=== PATIENT | female | born 1965 | race Caucasian/White ===

== ENCOUNTER 2022-07-24 09:29 | Outpatient (CLI) | payer BC, SELFPAY ==
--- NOTE | 2022-07-24 09:41 | US_ITS ---
WS: [id number] RIGHT UPPER QUADRANT ULTRASOUND HISTORY: BLACK STOOLS/RUQ ABD PAIN/BLOATING/FLATULENCE/ERUCTATION COMPARISON: None available. Liver: 12.8 cm in length. Normal size liver. No bile duct dilatation or mass. Portal Vein: Normal hepatopetal flow with monophasic waveform. Gallbladder: Normally distended gallbladder with no stones or wall thickening. CBD: 0.3 cm Pancreas: Normal size and echogenicity. Right kidney: 9.8 cm in length. Normal size and echogenicity. No hydronephrosis or mass. Aorta and IVC: Unremarkable abdominal aorta and IVC. No ascites. US/US abdomen limited [id number] IMPRESSION: Normal RIGHT upper quadrant ultrasound.
== END 2022-07-24 09:30 | disposition home or self-care (01) ==
LOC: RAD 09:33
PROVIDERS: PCP Family Medicine; Visit Provider Nurse Practitioner Family
DX: K92.1 Melena (principal); R10.11 Right upper quadrant pain; R14.0 Abdominal distension (gaseous); R14.3 Flatulence
CPT/HCPCS: 76705

== ENCOUNTER 2022-08-01 10:09 | Emergency (ER) | payer BC, MEDICAID, SELFPAY ==
[2022-08-01 10:16] VITALS: BMI 22.3
[2022-08-01 10:19] VITALS: BP 153/82; PULSE 111; RESP 18; TEMP 36.6; O2SAT 98
--- NOTE | 2022-08-01 10:28 | W.ED.SKABFB ---
HPI - Skin/Abscess/Foreign Bdy General: Chief complaint: Skin/Abscess/Foreign Body Stated complaint: body rash and cold Time Seen by Provider: 08/01/22 10:15 History of Present Illness: 57-year-old female presents emergency room with complaints of a rash on the extremities somewhat on her trunk for the last 2 months. She is aggressively excoriating her extremities when I came in the room. There are some areas on her back fewer small areas on her abdomen or extremities lower extremities and forearms are the worst. It is present bilaterally does not follow dermatomal pattern. She states she has previously seen her primary care physician was started on topical triamcinolone has been using Benadryl continues to give her difficulty. MD complaint: rash Onset (ago): month(s) (2) Location: chest, back, LUE, RUE, LLE and RLE Severity: moderate Quality: constant Relieving factors: none Exacerbating factors: none Context: none Associated symptoms: Deny arthralgias, chills, cough, fever(s), myalgias, nausea, rigidity, short of breath or vomiting Treatments prior to arrival: corticosteroid (Triamcinolone) Review of Systems Const: Denies: fever(s), chills, fatigue or malaise ENMT: Denies: throat pain, ear or mastoid pain, nasal discharge or nasal congestion Card: Denies: chest pain, palpitations, irregular heart rhythm, edema, dyspnea on exertion or orthopnea Resp: Denies: dyspnea, productive cough or non-productive cough GI: Denies: abdominal pain, nausea or vomiting : Denies: flank pain, difficulty voiding, dysuria, urinary frequency or urinary urgency Skin/Breast: Denies: rash or pruritus Course Vital Signs: Vital signs: Vital Signs Temperature 97.8 F 08/01/22 10:19 Pulse Rate 111 H 08/01/22 10:19 Respiratory Rate 18 08/01/22 10:19 Blood Pressure 153/82 08/01/22 10:19 Pulse Oximetry 98 08/01/22 10:19 Oxygen Delivery Me thod 08/01/22 10:19 MDM - Skin/Abscess/Foreign Bdy Medicial Decision Making Rash is excoriated with scattered small eschars no erythema no lymphangitis no induration no vesicles it is not in a dermatomal pattern. Does not appear to be infectious does not appear to be zoster patient was concerned it was shingles it is most certainly not that. She is excoriating it quite heavily while I was in the room advised her to avoid doing that as it will probably make it worse. Offered patient a Decadron shot she declined fact she left the department early without getting the shot she refused it from the nurse. She was prescribed steroid taper and increase triamcinolone to 3 times daily recommend following with her primary care for referral to dermatology Medical Records I reviewed the patient's medical records. Lab Data I reviewed the patient's lab results. Discharge Plan Discharge Patient Disposition: Home Clinical Impression: Contact dermatitis Condition: Stable Prescriptions: New prednisone 20 mg tablet 20 mg PO TID Qty: 15 0RF Rx Instructions: 1 p.o. 3 times daily x3 days, 1 p.o. twice daily x2 days, 1 p.o. daily x2 days hydroxyzine HCl 25 mg tablet 25 mg PO Q6H PRN (Reason: itching) Qty: 20 0RF triamcinolone acetonide 0.1 % ointment 1 applic topical TID Qty: 453.6 0RF Discharge Orders: Discharge ED (Routine); Ordered 08/01/22 Ordered By: Abilio Nguyen Referrals: Annetta Dunlap DO [Primary Care Provider] - Discharge Diet: Usual diet Discharge Activity: Increase activity as tolerated Patient Instructions: Opioid Safety, Pain Management Activity Restrictions/Additional Instructions: Steroid taper increase your triamcinolone to 3 times daily. Hydroxyzine as needed. Follow-up with your primary care doctor for possible referral to dermatology if not improving. Coding Level of Care Code ED [employer] for Diana Perez
== END 2022-08-01 11:10 | disposition home or self-care (01) ==
PROVIDERS: Emergency Provider Family Medicine; PCP Family Medicine
DX: L25.9 Unspecified contact dermatitis, unspecified cause (principal)
CPT/HCPCS: 99284

== ENCOUNTER 2023-02-11 16:28 | Outpatient (CLI) | payer BC, MEDICAID, SELFPAY ==
--- NOTE | 2023-02-11 16:39 | CT_ITS ---
WS: [id number] CT ABDOMEN AND PELVIS WITH CONTRAST HISTORY: ELEVATED AMYLASE, ABDOMINAL PAIN RECURRENT TECHNIQUE: Imaging performed of the abdomen and pelvis with IV contrast. Single phase imaging of the abdomen. Coronal and sagittal reformats are submitted. All CT scans at [facility] use at [address] one of these dose optimization techniques: automated exposure control; mA and/or kV adjustment per patient size (includes targeted exams where dose is matched to clinical indication); or iterative re construction. IV CONTRAST: Omnipaque 350; 100 mL IV. Oral contrast: No DLP: 248.68 mGy.cm COMPARISON: None available. Lower thorax: Lung bases are clear. No visualized. Heart size appears normal on the localizer image. No hiatal hernia. Liver/biliary system: Normal size with no intrahepatic dilatation. Gallbladder: Normal. No gallstones or wall thickening. No pericholecystic fluid. Pancreas: Pancreas is not well visualized as no oral contrast was provided. Overlapping loops of the duodenum and the pancreatic head. No mass identified and no pancreatic duct dilatation. No adjacent i nflammation. Spleen: Normal size spleen with several granulomata. Adrenal glands: Normal. Right kidney: Normal. Left kidney: Normal. Aorta: Mild atherosclerosis with no aneurysm. Lymphadenopathy: None. Free fluid: None. GI tract: Normal stomach, no small bowel obstruction. Prior appendectomy. No GI tract obstruction. Mi ld constipation. No significant diverticular disease. Abdominal wall: Unremarkable abdominal wall. No hernia. Pelvis: Normal size anteverted uterus. Urinary bladder is negative. No free fluid or adenopathy. Ther e is marked engorgement of the periuterine veins bilaterally which can lead to pelvic congestion synd khoa. Veins measure greater than 4 mm in diameter. Bones: Unremarkable. CT/CT abdomen pelvis w con* [id number] IMPRESSION: 1. No GI tract obstruction. No soft tissue masses are identified or diverticul ar disease. Please note this study was ordered without oral contrast which limi ts sensitivity. 2. Prior appendectomy. 3. No free fluid or adenopathy. 4. Dilated bilateral periuterine veins. Typically seen with pelvic congestion syndrome. 5. Negative pancreas. Pancreatic head is poorly identified without oral contra st. Appears negative. No pancreatic duct dilatation.
[2023-02-11] MEDS: iohexol 350 mg/mL 500 mL Btl (per mL) IV (16:54)
== END 2023-02-11 16:29 | disposition home or self-care (01) ==
LOC: RAD 16:30
PROVIDERS: PCP Family Medicine; Visit Provider Family Medicine
DX: R74.8 Abnormal levels of other serum enzymes (principal); R10.9 Unspecified abdominal pain; Z90.89 Acquired absence of other organs; I87.8 Other specified disorders of veins
CPT/HCPCS: 74177; Q9967

== ENCOUNTER → 2025-02-09 15:29 | Outpatient (BNVA) | payer BC, SELFPAY | DX: Z76.89 Persons encountering health services in other specified circumstances (principal) | CPT/HCPCS: 80053; 80061; 84443; 85025 ==

== ENCOUNTER 2025-02-15 06:43 | Outpatient (CLI) | payer BC, MEDICAID, SELFPAY ==
--- NOTE | 2025-02-15 07:15 | CT_ITS ---
WS: [id number] CT HEAD WITH AND WITHOUT CONTRAST HISTORY: constant headache and dizziness TECHNIQUE: Noncontrast 2.5 mm axial images obtained from the vertex to the skull base. Additional imaging performed at 2.5 mm axial images status post IV contrast. Bone and soft tissue windows are reviewed. All CT scans at [facility] use at least one of these dose optimization techniques: automated exposure control; mA and/or kV adjustment per patient size (includes targeted exams where dose is matched to clinical indication); or iterative reconstruction. CONTRAST: Omnipaque 350; 100 mL IV. DLP: 2176.74 mGy.cm COMPARISON: 03/08/2018 No acute intracranial hemorrhage, edema or midline shift. No significant atrophy. Incidental note is made of dense calcification in the pineal gland. There is also calcification along the interhemispheric falx which is stable. No prior infarcts. Small lacunar infarct is stable in the RIGHT occipital lobe. Present since 2012. No enhancing mass or vascular malformations identified. Dural venous sinuses are normally enhancing. Visualized [place] is unremarkable. Paranasal sinuses as visualized: Clear. Mastoid air cells: Clear. Calvarium and scalp: Intact. CT/CT head wo/w con [id number] IMPRESSION: 1. No acute intracranial hemorrhage or edema. 2. Remote lacunar infarct in the RIGHT occipital lobe. 3. No enhancing masses. 4. No significant sinus disease. 5. Stable CT since 03/08/2018 and 03/02/2013.
[2025-02-15] MEDS: iohexol 350 mg/mL 500 mL Btl (per mL) IV (07:45)
--- NOTE | 2025-02-15 08:00 | CT_ITS ---
WS: [id number] LDCT LUNG CANCER SCREENING TECHNIQUE: Noncontrast CT of the chest with coronal and sagittal reformatted images. CLINICAL INFORMATION: screening COMPARISON: None. DLP: 48.21 mGy.cm DIvol: Mean CTDIvol: 0.70 (mGy) All CT scans at [facility] use at least one of these dose optimization techniques: automated exposure control; mA and/or kV adjustment per patient size (includes targeted exams where dose is matched to clinical indication); or iterative reconstruction. FINDINGS: Slightly spiculated solid mass in the inferior segment LEFT upper lobe measuring 1.2 cm. Findings suspicious for neoplasm. Recommend further evaluation with PET/CT. 4 mm nodule LEFT upper lobe. Aortic calcification. Normal caliber thoracic aorta. Coronary calcification. Bilateral breast implants. No mediastinal or hilar lymphadenopathy. No axillary lymphadenopathy. Mild thoracic kyphosis. CT/CT lung screening [id number] IMPRESSION: Suspicious spiculated lesion in the LEFT upper lobe measuring 1.2 c m. Recommend further evaluation with PET/CT. LUNG-RADS: 4B-Suspicious FOLLOW UP: PET/CT recommended
== END 2025-02-15 06:44 | disposition home or self-care (01) ==
LOC: RAD 06:44
DX: Z12.2 Encounter for screening for malignant neoplasm of respiratory organs (principal); F17.210 Nicotine dependence, cigarettes, uncomplicated; R51.9 Headache, unspecified; R53.1 Weakness; R91.8 Other nonspecific abnormal finding of lung field; R91.1 Solitary pulmonary nodule; I70.0 Atherosclerosis of aorta; I25.10 Atherosclerotic heart disease of native coronary artery without angina pectoris; Z98.82 Breast implant status; M40.294 Other kyphosis, thoracic region; E34.8 Other specified endocrine disorders; G96.198 Other disorders of meninges, not elsewhere classified
CPT/HCPCS: 70470; 71271

== ENCOUNTER 2025-02-18 14:01 | Outpatient (CLI) | payer BC, MEDICAID, SELFPAY ==
--- NOTE | 2025-02-18 14:30 | USCV_ITS ---
Louise Camarena Age: 59 Gender: F : 1965 Exam Date: 02/18/2025 14:47 Ordering Phys: June Mcgrath NP Technologist: R Exam Location: [facility] [place] Indication: stenosis Risk Factors: Previous Vascular Surgery: Right Brachial BP: / Left Brachial BP: / Right Left Velocity (cm/s) Spectral Plaque Velocity (cm/s) Spectral Plaque Syst/Diast Broadening Syst/Diast Broadening 132.00/29.60 Prox CCA 124.90/ 36.60 105.90/27.40 Mid CCA 87.40 / 25.40 105.90/31.80 Distal CCA 89.30 / 23.50 77.50/ 16.60 Prox ICA 72.40 / 18.50 110.20/23.10 Mid ICA 89.10 / 32.50 96.40/ 31.60 Distal ICA 102.00/ 32.50 136.30 ECA 118.60 0.70 ICA/CCA 0.80 Antegrade Vertebral Antegrade 79.80/ 22.50 cm/s 47.50/ 10.00 cm/s Tri Subclavian Tri 208.0 159.3 0 0 CONCLUSIONS Right ICA stenosis <50%. Moderate atheromatous plaque right carotid bulb/ICA. Left ICA stenosis <50%.mild atheromatous plaque left carotid bulb/ICA. Intimal thickening in the common carotid arteries and internal carotid arteries bilaterally. Normal antegrade Doppler flow noted in the right vertebral artery. Normal antegrade Doppler flow noted in the left vertebral artery. Pierce Martinez MD (Electronically Signed) Final Date: 18 February 2025 16:29 S
== END 2025-02-18 14:02 | disposition home or self-care (01) ==
DX: R53.1 Weakness (principal); I65.23 Occlusion and stenosis of bilateral carotid arteries
CPT/HCPCS: 93880

== ENCOUNTER 2025-02-25 10:09 | Outpatient (CLI) | payer BC, MEDICAID, SELFPAY ==
--- NOTE | 2025-02-25 11:00 | PETR_ITS ---
PROCEDURE INFORMATION: Exam: PET/CT Skull Base to Mid-thigh Exam date and time: 02/25/2025 11:13 AM Age: 59 years old Clinical indication: Condition or disease; Condition/disease: Abdnormal CT, lung nodule LABS AND CLINICAL REPORTS: Glucose: 135 mg/dl Treatment strategy for malignancy (PET staging): Initial Staging (PI) TECHNIQUE: Imaging protocol: Following at least four-hour fasting and following the injection of radiopharmaceutical, low dose CT images were obtained. Then, PET images were obtained. Attenuation corrected images were constructed using the CT scan. Fused images of PET and CT were reviewed. The standardized uptake values (SUV) reported below are maximum values within a region of interest, expressed in gm/ml. Exam includes orbital meatal line to mid-thigh. SUV normalization method: BodyWeight Radiopharmaceutical: 11.25 mCi F-18 FDG (Fluorodeoxyglucose), IV. Time of imaging post radiopharmaceutical administration: 46 minutes Injection site: [facility] COMPARISON: CT lung screening [id number] 02/15/2025 7:35 AM, CT head 02/15/2025, CT abdomen and pelvis 02/11/2023 FINDINGS: Brain: Visualized brain has normal physiologic uptake. Oral cavity: There is physiologic appearing uptake in the region of the anterior tongue without definitive evidence of a correlating lesion on the CT images. Pharynx: Physiologic or inflammatory hearing uptake in the region of the bilateral palatine tonsils is noted. Larynx: No abnormal uptake. Lungs, pleura and trachea: A solid left upper lobe nodule measuring 1.2 x 1.1 cm on series 202, image 103 is noted, SUV max 24.0. A previously identified solid 4 mm left upper lobe nodule is unchanged and does not radiotracer evidence series 202, image 87. Heart: Normal physiologic uptake. Mediastinal space: No abnormal uptake. Liver: No abnormal uptake. Gallbladder and biliary ducts: No abnormal uptake. Pancreas: No abnormal uptake. Spleen: No abnormal uptake. Calcified granulomas in the spleen are identified. Adrenal glands: No abnormal uptake. Kidneys and ureters: Normal physiologic uptake. Stomach and bowel: No abnormal uptake. Vasculature: No abnormal uptake. Multifocal regions of atherosclerotic calcification are present, including within the coronary arteries. Lymph nodes: Uptake within a non pathologically enlarged subcarinal lymph node measuring 6 mm in short axis on CT series 202, image 90 is present, SUV max 5.4. Mild uptake within ill-defined non pathologically enlarged left hilar lymph nodes is noted, SUV max 3.5 on PET series 301, image 90. Uptake within a precarinal lymph node measuring 8 mm in short axis on CT image 82 is noted, SUV max 2.6. Low-level uptake in the right hilar region is noted, SUV max 2.9 on image 92 without well-defined correlating lymph nodes on the CT images. Skeleton: Elevated uptake associated with mild facet arthropathy is likely related to degenerative inflammatory changes on the right at C2-C3, SUV max 3.5 on image 22. Soft tissues: No abnormal uptake in the visualized head, neck, chest, abdomen, pelvis, and extremities. There are bilateral breast implants. In the anterior, slightly inferior left breast a non radiotracer avid low-density ovoid nodular structure measures 1.2 x 0.8 cm (previously 1.4 x 0.6 cm) on CT image 103. METRICS: Mediastinal blood pool: SUV max 2.4, SUV mean 2.0 Liver uptake: SUV max 3.0, SUV mean 2.7 PET/PET skull to thigh INIT [id number] IMPRESSION: 1. A 1.2 x 1.1 cm left upper lobe nodule is radiotracer avid concerning for malignancy. 2. A similar 4 mm solid left upper lobe nodule is not radiotracer avid. Assessment of small nodules can be limited by PET-CT. 3. Uptake within non pathologically enlarged mediastinal and bilateral hilar lymph nodes is identified, which can be inflammatory, infectious or malignant in etiology. 4. A low-density structure probable cystic structure in the anterior left breast is noted without elevated uptake favoring a benign etiology. Correlation with mammography or breast ultrasound is recommended as clinically indicated. 5. Additional nonurgent findings as detailed above.
== END 2025-02-25 10:10 | disposition home or self-care (01) ==
DX: R91.1 Solitary pulmonary nodule (principal); R91.8 Other nonspecific abnormal finding of lung field; D73.89 Other diseases of spleen; I25.10 Atherosclerotic heart disease of native coronary artery without angina pectoris; R59.0 Localized enlarged lymph nodes; Z98.82 Breast implant status; R92.30 Dense breasts, unspecified
CPT/HCPCS: 78815; A9552

== ENCOUNTER 2025-03-10 11:09 | Oncology outpatient (recurring) (ONCR) | payer BC, MEDICAID, SELFPAY | END 2025-03-14 23:59 | disposition home or self-care (01) | PROVIDERS: Visit Provider Internal Medicine | DX: Z53.9 Procedure and treatment not carried out, unspecified reason (principal) ==

== ENCOUNTER 2025-03-30 06:41 | Outpatient (CLI) | payer BC, MEDICAID, SELFPAY | END 2025-03-30 06:42 | disposition home or self-care (01) | LOC: RT 06:42 | PROVIDERS: Visit Provider Internal Medicine | DX: J43.9 Emphysema, unspecified (principal); Z72.0 Tobacco use; R94.2 Abnormal results of pulmonary function studies | CPT/HCPCS: 94010; 94726; 94729 ==

== ENCOUNTER 2025-04-14 13:45 | Oncology outpatient (recurring) (ONCR) | payer BC, MEDICAID, SELFPAY ==
--- NOTE | 2025-03-31 11:26 | MM_ITS ---
WS: [id number] BILATERAL 3D TOMOSYNTHESIS DIGITAL DIAGNOSTIC MAMMOGRAPHY WITH CAD CLINICAL INFORMATION: LUNG NODULE SEEN ON IMAGING STUDY HISTORY: Nodule seen on PET/CT 02/25/2025 TECHNIQUE: Bilateral CC, MLO, and ML views. FINDINGS: Scattered fibroglandular densities bilaterally. Lobulated focal asymmetric density measuring 1.8 cm lower inner LEFT breast retroareolar near the 6 o'clock position. Ultrasound is pending. Breast implants appear intact. Incidental punctate calcifications. ULTRASOUND BREAST LEFT TECHNIQUE: Ultrasound left breast focused area of concern. CLINICAL INFORMATION:NODULE SEEN ON IMAGING STUDY FINDINGS: Ultrasound LEFT breast area of concern at the 6 o'clock position. Lobulated simple cyst in this area measuring 9 x 5 x 14 mm. This has a benign appearance. No other suspicious findings. MM/MM diag BI tomosynthesis [id number] IMPRESSION: DENSITY: There are scattered areas of fibroglandular density. BI-RADS: 2 - Benign. FOLLOW UP: 1 Year Follow-up Recommend return to annual screening mammography.
--- NOTE | 2025-03-31 12:20 | US_ITS ---
WS: [id number] BILATERAL 3D TOMOSYNTHESIS DIGITAL DIAGNOSTIC MAMMOGRAPHY WITH CAD CLINICAL INFORMATION: LUNG NODULE SEEN ON IMAGING STUDY HISTORY: Nodule seen on PET/CT 02/25/2025 TECHNIQUE: Bilateral CC, MLO, and ML views. FINDINGS: Scattered fibroglandular densities bilaterally. Lobulated focal asymmetric density measuring 1.8 cm lower inner LEFT breast retroareolar near the 6 o'clock position. Ultrasound is pending. Breast implants appear intact. Incidental punctate calcifications. ULTRASOUND BREAST LEFT TECHNIQUE: Ultrasound left breast focused area of concern. CLINICAL INFORMATION:NODULE SEEN ON IMAGING STUDY FINDINGS: Ultrasound LEFT breast area of concern at the 6 o'clock position. Lobulated simple cyst in this area measuring 9 x 5 x 14 mm. This has a benign appearance. No other suspicious findings. US/US breast LT limited* [id number] IMPRESSION: DENSITY: There are scattered areas of fibroglandular density. BI-RADS: 2 - Benign. FOLLOW UP: 1 Year Follow-up Recommend return to annual screening mammography.
[2025-04-07 14:47] LABS: Hematocrit 43.5 % (36-47); Hemoglobin 15.00 g/dL (11.27-16.99); Mean Corpuscular HGB Conc 34.5 g/dL (30-55); Mean Corpuscular Hemoglobin 32.8 pg (27-33); Mean Corpuscular Volume 95.2 fl (85-98); Nucleated Red Blood Cells % 0 %; Platelet Count 270 10^3/cmm (157-399); Red Blood Count 4.57 10^6/uL (3.85-5.65); White Blood Count 7.95 10^3/uL (3.29-11.43)
[2025-04-07 15:36] LABS: Alanine Aminotransferase 12 U/L (0-33); Albumin Level 4.5 g/dL (3.5-5.2); Alkaline Phosphatase 103 U/L (35-105); Anion Gap 18.4 (5-19); Aspartate Amino Transferase 18 U/L (0-32); Blood Urea Nitrogen 14 mg/dL (8-23); Calcium 9.7 mg/dL (8.5-10.5); Carbon Dioxide 24 mmol/L (22-29); Chloride 100 mmol/L (98-107); Creatinine Clr Calc Pharmacy 71.6461; Globulin 3.4 g/dL (1.3-4.6); Glucose 84 mg/dL (65-115); Osmolality Calculated 286 mOsm/kg (285-295); Potassium 4.4 mmol/L (3.5-5.1); Sodium 138 mmol/L (136-145); Total Protein 7.9 g/dL (6.6-8.7)
--- NOTE | 2025-04-07 16:07 | N.ONRAD NP_ITS ---
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 STAGE: [id number] ICD-10: C 34.12, C77.1 Radiotherapy to date: Summary > No prior radiation therapy. Chief Complaint / History of Present Illness: Here for consultation of lung cancer. 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 She initially presented to a PCP in February of this year due to multiple syncopal episodes carding in January of this year. She is a chronic smoker and has history of COPD. Patient underwent CT lung screening on 02/15/2025 which showed a SILVER nodule with bilateral hilar mediastinal lymphadenopathy. PET/CT on 02/25/2025 showed a 1.2 x 1.1 cm SILVER mass with an SUV of 24. She had a's a stable 0.4 cm SILVER nodule with no uptake. Subcarinal lymph node measuring 0.6 cm (5.4), left hilar LN (3.5), precarinal lymph node 0.8 cm (2-0.6), Right Hilar uptake (2.9). She also had a left breast ovoid low-density structure measuring 1.2 x 0.8 mm. Mammogram on 03/31/2025 showed benign findings. EBUS bronchoscopy on 04/01/2025 with an FNA showing adenocarcinoma consistent with lung primary. Left hilar lymph nodes showed no evidence of malignancy subcarinal lymph node showed no evidence of malignancy Patient is a 45 5-year pack smoker but based on her discussion of her findings today she is going to quit smoking. She denies any fevers, chills, night sweats, hemoptysis, weight loss, or new unexplained bony tenderness. Patient has orders for MRI of the brain and port placement. Current Medications: Last Reconciled 04/07/25 by Olivia Chen MA albuterol sulfate 90 mcg/actuation (Ventolin HFA) inhalation escitalopram oxalate 5 mg PO DAILY mupirocin 2% (Centany) 1 applic topical TID 7 days ondansetron 4 mg PO Q8H PRN 2 weeks Allergies: sulfamethoxazole (From Bactrim) Allergy (Verified 04/07/25 13:22) ADR-Chest Pain trimethoprim (From Bactrim) Allergy (Verified 04/07/25 13:22) ADR-Chest Pain Medical History: Reviewed 04/07/25 @ 13:23 by Olivia Chen MA) Seizures TBI (traumatic brain injury) 2013 Trigeminal neuralgia Depressed Surgical History: Reviewed 04/07/25 @ 13:23 by Olivia Chen MA) History of breast augmentation bilateral History of appendectomy Family History: Reviewed 04/07/25 @ 13:23 by Olivia Chen MA) Grandfather Congenital heart disease Grandmother Cancer Father Congestive heart failure (CHF) Stroke Mother Diabetes Congenital heart disease Stroke Social History: Smoking and tobacco/nicotine status: light tobacco/nicotine user to quit smoking as of today. Alcohol intake: never Substance/Drug Use: never Lives independently: Yes Household members: significant other Housing: Manufactured/Mobile home Marital status: Number of children: 2 Number of grandchildren: 5 service: No Current occupational status: disabled Current Complaints / Review of Systems: . As above Vital Signs: Performed on 04/07/2025 2:11 PM BMI - 23.229 kg/m2 (high), Height - 62 in, Weight - 127 lbs, Temperature - 98.7 f, Pulse - 87 /min, Respiration - 17 /min, O2 Sat - 98 %, Pain - 2, Fatigue - 0 and BP - 160/ 98 mm(hg)(high). Physical Exam: Alert and oriented white female in no acute distress. She is obviously upset and crying at times due to diagnosis. Pupils are equal to light and accommodation. Extraocular muscles intact. Neck shows no cervical lymphadenopathy. Oral cavity exam showed no mucosal lesions. Lungs are clear to auscultation no intercostal retraction noted. Abdomen soft nontender with no hepatosplenomegaly. Extremities intact x 4. Mild cupping noted. Vertebral exam shows no bony tenderness. 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 No abnormal gait. Mdixqo-ci-slte adequate. Performance Status: KPS 90 Pathology: Adenocarcinoma SILVER Lab: Imaging: See HPI Impression: ADENOCARCINOMA SILVER, 1.2 X 1.1CM(24.0), BX ??? 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 STAGE: [id number] ICD-10: C 34.12, C77.1 Plan: Options were discussed in detail with the patient. Normal side effects regarding XRT were discussed in detail and questions answered We will need to await port placement before CT simulation CT simulation with PET fusion. Treatment to 7000 cGy in 35 fractions along with weekly carbo/Taxol chemotherapy. Following completion of combined chemoradiation she will undergo a years worth of immunotherapy. Signed by: 04/07/2025 4:06:45 PM <<Signature on File>> Time spent with patient/record review/record preparation: 75 MINUTES CPT Code: CPT Code:
--- NOTE | 2025-04-13 09:56 | XRR_ITS ---
PROCEDURE INFORMATION: Exam: XR Chest Exam date and time: 04/13/2025 10:02 AM Age: 59 years old Clinical indication: Chest wall pain; Swelling in rib region, starting chemo next month. Lung cancer; Additional info: Rib pain and shortness of breath TECHNIQUE: Imaging protocol: Radiologic exam of the chest. Views: 2 views. COMPARISON: CT lung screening [id number] 02/15/2025 7:35 AM FINDINGS: Tubes, catheters and devices: There are bilateral saline breast implants. Lungs: There is an approximately 1.3 cm nodule in the left lower lung field which correlates with the CT. Pleural spaces: Unremarkable. No pleural effusion. No pneumothorax. Heart/Mediastinum: Unremarkable. No cardiomegaly. Bones/joints: Unremarkable. XR/XR chest 2V* [id number] IMPRESSION: 1. There is an approximately 1.3 cm nodule in the left lower lung field probably in the lower left upper lobe which correlates with the CT. It is radiographically indeterminate. 2. Otherwise unremarkable chest x-ray.
--- NOTE | 2025-04-14 13:45 | MR_ITS ---
WS: [id number] MRI BRAIN WITH AND WITHOUT CONTRAST HISTORY: non small cell lung cancer COMPARISON: None available. TECHNIQUE: Multiplanar imaging performed through the brain with MultiHance 12 ml's IV. No acute infarcts are seen. Angelo-white matter differentiation is well preserved. There are very few T2 FLAIR signal hyperintensities within the subcortical white matter. No prior infarct. No significant atrophy. No susceptibility artifacts or prior lacunar infarcts. Ventricles and extra-axial spaces are normal. Clivus and pituitary gland are normal. Visualized posterior fossa and brainstem are also normal. Postcontrast images are negative for masses or vascular malformations. Dural venous sinuses are normal. Paranasal sinuses: Well aerated with no significant disease. Mastoid air cells: Normal. Calvarium and scalp: Normal. MR/MR head wo/w con [id number] IMPRESSION: 1. No metastatic disease to the brain. 2. Minimal small vessel changes. No prior infarcts. 3. No significant atrophy.
[2025-04-14] MEDS: gadobenate dimeglumine 20 mL vial IV (14:01)
== END 2025-04-14 23:59 | disposition home or self-care (01) ==
LOC: RAD 04-15 00:01 → ONCMED 04-18 09:40
PROVIDERS: Visit Provider Internal Medicine
DX: Z53.9 Procedure and treatment not carried out, unspecified reason; C34.12 Malignant neoplasm of upper lobe, left bronchus or lung
CPT/HCPCS: 36415; 70553; 71046; 76642; 77062; 80053; 83615; 85025; G0279

== ENCOUNTER 2025-04-20 05:30 | Day surgery (SDC) | payer BC, MEDICAID, SELFPAY ==
[2025-04-20] VITALS (11 sets, daily range): BP systolic 120–166; BP diastolic 67–116; PULSE 52–68; RESP 16–18; TEMP 36.1–36.3; O2SAT 93–100
--- NOTE | 2025-04-20 05:37 | SC_ITS ---
WS: [id number] C-ARM RADIOGRAPHS CHEST; 2 IMAGES HISTORY: Port-A-Cath placement COMPARISON: None available. Intraoperative imaging during Port-A-Cath placement. Port-A-Cath overlies the RIGHT upper thorax. SC/C-arm FL for CVA [id number] IMPRESSION: Intraoperative imaging during RIGHT Port-A-Cath placement.
--- NOTE | 2025-04-20 06:35 | ANES.PREANE2 ---
Pre-Anesthetic Assessment Height/Weight: Height 1.57 m Weight 57.153 kg Temp Pulse Resp BP Pulse Ox O2 Del Method 97.3 F L 68 18 161/116 100 Room Air 04/20/25 05:52 04/20/25 05:52 04/20/25 05:52 04/20/25 05:52 04/20/25 05:52 04/20/25 05:52 Operation Date: 04/20/25 07:00 Proposed Procedures p Portacath Placement 33824 C34.12(Not Applicable) - Hill Barrientos MD Familial anesthetic complications: None Was Beta Gaby taken within 24 hours: N/A Was Clonidine taken within 24 hours: N/A Last intake: Intake Last Liquid Date 04/19/25 Last Liquid Time 21:00 Last Solid Date 04/19/25 Last Solid Time 20:30 Social Tobacco and No alcohol Exam alert, oriented x 3, clear to auscultation bilaterally and regular rate & rhythm Airway Mallampati: Class II Dentition: partials Pulmonary Chronic Obstructive Pulmonary Disease Lung Nodule Anesthetic Plan ASA status: 3 Anesthesia: MAC Risk of > 500 ml blood loss (7ml/kg in children): No Medications/Allergies Home Medications ?Medication ?Instructions ?Recorded ?Confirmed ?Last Taken ?Type escitalopram oxalate 5 mg tablet 5 mg PO DAILY #30 tabs 03/09/25 04/20/25 04/18/25 Rx ondansetron 4 mg disintegrating 4 mg PO Q8H PRN nausea and 03/10/25 04/20/25 Unknown Rx tablet vomiting 2 weeks #20 tabs albuterol sulfate 90 mcg/actuation 1 puff inhalation AC PRN Allergy 03/31/25 04/20/25 03/27/25 History aerosol inhaler (Ventolin HFA) Symptoms ondansetron HCl 4 mg tablet 4 mg PO Q6H PRN nausea and 04/07/25 04/20/25 Unknown Rx vomiting #30 tabs prochlorperazine maleate 10 mg 10 mg PO Q4H PRN mild nausea #30 04/07/25 04/20/25 Unknown Rx tablet (Compazine) tabs lidocaine-prilocaine 2.5 %-2.5 % 1 applic topical ONCE #30 grams 04/13/25 04/20/25 Unknown Rx topical cream ibuprofen 800 mg tablet 800 mg PO Q8H PRN as needed for 04/19/25 04/20/25 04/18/25 History pain mupirocin 2 % topical ointment 1 applic topical DIRECTED PRN 04/19/25 04/20/25 Unknown History (Jennieany) Prevent infection on scrapes and cuts Allergies Allergy/AdvReac Type Severity Reaction Status Date / Time sulfamethoxazole (From Allergy ADR-Chest Verified 04/19/25 09:47 Bactrim) Pain trimethoprim (From Bactrim) Allergy ADR-Chest Verified 04/19/25 09:47 Pain Current Medications Generic Name Dose Route Start Last Admin Trade Name Freq PRN Reason Stop Dose Admin Sodium Chloride 1,000 mls @ 30 mls/hr 04/20/25 05:45 04/20/25 06:03 Sodium Chloride 0.9% IV 04/21/25 05:44 30 mls/hr .Q24H CASSANDRA Administration PFSH Anesthesia Medical History Seizures TBI (traumatic brain injury) 2013 Trigeminal neuralgia Depressed Surgical History History of breast augmentation bilateral History of appendectomy Family History Grandfather Congenital heart disease Grandmother Cancer Father Congestive heart failure (CHF) Stroke Mother Diabetes Congenital heart disease Stroke Social History Smoking and tobacco/nicotine status: never used tobacco/nicotine Alcohol intake: never Substance/Drug Use: never Lives independently: Yes Household members: significant other Housing: Manufactured/Mobile home Marital status: Number of children: 2 Number of grandchildren: 5 service: No Current occupational status: disabled
--- NOTE | 2025-04-20 07:09 | W.PM.OPSUD ---
Surgery/Procedure H&P Update DATE OF PROCEDURE: April 20, 2025 DATE H&P PERFORMED: 04/18/25 H&P UPDATE INFORMATION: I have reviewed H&P completed within last 30 days, I have examined patient prior to procedure and No changes to prior documentation PLANNED PROCEDURE: Operation Date: 04/20/25 07:00 Proposed Procedures p Portacath Placement [id number] C34.12(Not Applicable) - Hill Barrientos MD
[2025-04-20] MEDS: ceFAZolin 2,000 mg SDV 2000 MG IVP (07:13)
[2025-04-20] MEDS: lidocaine-epi 1% 20 mL INJ 10 ML INJECTION (07:45)
[2025-04-20] MEDS: BUPivacaine 0.25% INJ 30 mL 10 ML INJECTION (07:46)
--- NOTE | 2025-04-20 07:51 | P.OP_ITS ---
Operative Report Date of procedure: April 20, 2025 Pre-op diagnosis: Lung cancer Post-op diagnosis: same Post-op findings: Tip of catheter at atriocaval junction confirmed with intraoperative fluoroscopy Procedure done: Port-A-Cath placement Implants: Port-A-Cath Specimens removed/disposition: N/A Pathology: none sent Surgeon: Hill Barrientos MD Server Software Engineer: N/A Anesthesia: MAC Estimated blood loss (mL): 5 Complications: N/A Findings: Tip of catheter at atriocaval junction confirmed with intraoperative fluoroscopy Condition: stable Disposition: same day Brief History: 59-year-old female with lung cancer. Discussed risk and benefits and patient agreed to proceed with Port-A-Cath placement. Procedure: Patient was brought into the operating room and a timeout was carried out. Procedure was done under MAC. Patient was placed supine with the arms tucked and in Trendelenburg. Patient was prepped and draped in the usual sterile fashion. Using ultrasound guidance the right internal jugular vein was accessed. A guidewire was then placed down to the atriocaval junction using fluoroscopy. The finder needle was removed and the guidewire was secured. I then turned my attention to creating a pocket over the right chest. Make sure to locally infiltrated using plain lidocaine and bupivacaine at the site of the pocket and throughout the tunnel site. I confirmed adequate hemostasis at the pocket. I then proceeded to place the port that was already preassembled and flushed with heparinized saline and the chest pocket. I tunneled the catheter from the chest to the neck at the site where I accessed the internal jugular vein. I measured and adjusted the length of the catheter so it would reach the atrial caval junction. At this point, I used a dilator to dilate the tract into the internal jugular vein using fluoroscopy. I removed the guidewire and proceeded to thread the central venous catheter through the introducer. In the process, I removed the sheath as a completely pushed the catheter into the internal jugular vein. I then confirmed adequate placement of the catheter by performing intraoperative interpretation of fluoroscopy. The tip of the catheter was confirmed to be placed in the atriocaval junction. There were no kinks noted throughout the trajectory of the catheter. I then proceeded to test the port and was satisfied with its functionality. I proceeded to flushed the catheter without any issues. I then hep-locked the port. Skin was closed using deep dermal 3-0 Vicryl, subcuticular 4-0 Monocryl, and Dermabond. Patient was then transferred to PACU without any complications.
[2025-04-20] MEDS: heparin, porcine 1,000 unit/mL INJ 10 mL 10000 UNIT XX (07:55)
[2025-04-20] MEDS: ondansetron 2 mg/ML SDV 2 mL 4 MG IVP ×2 (08:03→08:14)
--- NOTE | 2025-04-20 09:00 | ANE.PACU2 ---
Inpatient post-anesthesia follow up: Airway intact: Yes Vital signs: Temperature 97 F Pulse Rate 52 Respiratory Rate 16 Blood Pressure 144/78 Pulse Oximetry 98 Oxygen Delivery Me thod Room Air Oxygen Flow Rate Fraction of Inspir ed Oxygen Hydration adequate: Yes Nausea and vomiting: No Pain level: 1 Mental status: Baseline
== END 2025-04-20 09:00 | disposition home or self-care (01) ==
PROVIDERS: Visit Provider Student in an Organized Health Care Education/Training Program
PROC: (CPT 36561; principal; 2025-04-20 07:00)
DX: C34.90 Malignant neoplasm of unspecified part of unspecified bronchus or lung (principal); J44.9 Chronic obstructive pulmonary disease, unspecified; R56.9 Unspecified convulsions; F32.A Depression, unspecified; Z87.820 Personal history of traumatic brain injury
CPT/HCPCS: 36561; 76000; 77001; C1788; J0690; J1644; J2250; J2405; J2704; J3010; J3490; J7030; J9999

== ENCOUNTER 2025-05-13 09:50 | Oncology outpatient (recurring) (ONCR) | payer BC, MEDICAID, SELFPAY ==
[2025-05-05 07:54] LABS: Hematocrit 41.3 % (36-47); Hemoglobin 14.10 g/dL (11.27-16.99); Mean Corpuscular HGB Conc 34.1 g/dL (30-55); Mean Corpuscular Hemoglobin 32.2 pg (27-33); Mean Corpuscular Volume 94.3 fl (85-98); Nucleated Red Blood Cells % 0 %; Platelet Count 208 10^3/cmm (157-399); Red Blood Count 4.38 10^6/uL (3.85-5.65); White Blood Count 7.60 10^3/uL (3.29-11.43)
[2025-05-05 08:13] LABS: Alanine Aminotransferase 13 U/L (0-33); Albumin Level 4.4 g/dL (3.5-5.2); Alkaline Phosphatase 95 U/L (35-105); Anion Gap 14.2 (5-19); Aspartate Amino Transferase 21 U/L (0-32); Blood Urea Nitrogen 15 mg/dL (8-23); Calcium 9.2 mg/dL (8.5-10.5); Carbon Dioxide 26 mmol/L (22-29); Chloride 104 mmol/L (98-107); Creatinine Clr Calc Pharmacy 71.8911; Globulin 2.9 g/dL (1.3-4.6); Glucose 77 mg/dL (65-115); Osmolality Calculated 290 mOsm/kg (285-295); Potassium 4.2 mmol/L (3.5-5.1); Sodium 140 mmol/L (136-145); Total Protein 7.3 g/dL (6.6-8.7)
[2025-05-05] MEDS: diphenhydrAMINE 50 mg/mL SDV 1mL 25 MG IVP (11:17)
[2025-05-05] MEDS: PACLitaxeL 80 MG in sodium chloride 0.9%(non-DEHP) 250 ML 263.33 MG IV (12:17)
[2025-05-05] MEDS: CARBOplatin 210 MG in sodium chloride 0.9% 500 ML 521 MG IV (13:42)
[2025-05-05 15:08] VITALS: BP 147/91; PULSE 66; RESP 17; TEMP 36.6; O2SAT 98
--- NOTE | 2025-05-10 13:58 | ONCRAD TMN_ITS ---
Radiation Oncology Weekly Treatment Management Patient: Louise Camarena MR#: [id number] : 1965 Attending Physician: Brice Bustamante Date of Service: 05/10/2025 Referring Physician(s) : Diagnosis: C34.12 - Malignant neoplasm of upper lobe, left bronchus or lung, Diagnosed 04/01/2025 (Active) C77.1 - Secondary and unspecified malignant neoplasm of intrathoracic lymph nodes, Diagnosed 02/25/2025 (Active) Radiotherapy to date: Course: Lt Lung 2024, Treatment Site: SILVER+Mediastinum+RLung, Ref. ID: [id number], Energy: 6X, Dose/Fx (cGy): 200, #Fx: 4 / 35, Dose Correction (cGy): 0, Total Dose Delivered (cGy): 800, Start Date: 05/05/2025, Elapsed Days: 5 Reason for visit: The patient is being seen today as part of their regularly scheduled weekly on treatment visits to assess for acute toxicities from radiotherapy. Review of Systems: This is a pleasant 59-year-old female being treated ADENOCARCINOMA SILVER and mediastinal lymph nodes. She will have a chemo and labs on , 05/12/2025. She is complaining of constipation issues and pain related to that. She is using medication and it is starting to resolve. Patient denies any hemoptysis but does have a productive cough with sputum being clear. Vital Signs: Performed on 05/10/2025 1:35 PM BMI - 23.229 kg/m2 (high), Height - 62 in, Weight - 127 lbs, Temperature - 96.9 f, Pulse - 82 /min, Respiration - 16 /min, O2 Sat - 96 %, Pain - 0, Fatigue - 0 and BP - 133/ 84 mm(hg). Physical Exam: AAOx3. Skin intact Imaging: Radiation therapy imaging related to accurate target localization (i.e. KV, MV and CBCT) was reviewed. Appropriate changes, if any, were made to ensure treatment accuracy. Plan: Continue stool softener Chemo 05/12/2025 if labs are adequate Continue XRT Signed by: Brice Bustamante 05/10/2025 1:56:23 PM
[2025-05-12 08:46] LABS: Hematocrit 39.1 % (36-47); Hemoglobin 13.50 g/dL (11.27-16.99); Mean Corpuscular HGB Conc 34.5 g/dL (30-55); Mean Corpuscular Hemoglobin 33.1 pg (27-33); Mean Corpuscular Volume 95.8 fl (85-98); Nucleated Red Blood Cells % 0 %; Platelet Count 203 10^3/cmm (157-399); Red Blood Count 4.08 10^6/uL (3.85-5.65); White Blood Count 5.13 10^3/uL (3.29-11.43)
[2025-05-12 09:08] LABS: Alanine Aminotransferase 14 U/L (0-33); Albumin Level 4.1 g/dL (3.5-5.2); Alkaline Phosphatase 85 U/L (35-105); Anion Gap 14.0 (5-19); Aspartate Amino Transferase 19 U/L (0-32); Blood Urea Nitrogen 19 mg/dL (8-23); Calcium 9.3 mg/dL (8.5-10.5); Carbon Dioxide 25 mmol/L (22-29); Chloride 102 mmol/L (98-107); Creatinine Clr Calc Pharmacy 84.1582; Globulin 2.9 g/dL (1.3-4.6); Glucose 66 mg/dL (65-115); Osmolality Calculated 284 mOsm/kg (285-295); Potassium 4.0 mmol/L (3.5-5.1); Sodium 137 mmol/L (136-145); Total Protein 7.0 g/dL (6.6-8.7)
[2025-05-12] MEDS: diphenhydrAMINE 50 mg/mL SDV 1mL 25 MG IVP (10:14)
[2025-05-12] MEDS: PACLitaxeL 80 MG in sodium chloride 0.9%(non-DEHP) 250 ML 263.33 MG IV (11:23)
[2025-05-12] MEDS: CARBOplatin 230 MG in sodium chloride 0.9% 500 ML 523 MG IV (12:45)
[2025-05-12 14:04] VITALS: BP 150/93; PULSE 70; RESP 16; TEMP 36.3; O2SAT 96
== END 2025-05-15 23:59 | disposition home or self-care (01) ==
PROVIDERS: Nurse Practitioner Family; Visit Provider Radiology Radiation Oncology
DX: Z51.0 Encounter for antineoplastic radiation therapy (principal); C34.12 Malignant neoplasm of upper lobe, left bronchus or lung; C77.1 Secondary and unspecified malignant neoplasm of intrathoracic lymph nodes
CPT/HCPCS: 77300; 77301; 77334; 77336; 77338; 77386; 77470; 80053; 83615; 85025; 96367; 96375; 96413; 96417; J1100; J1200; J2469; J3490; J7040; J7050; J9045; J9267; J9999

== ENCOUNTER 2025-06-06 13:15 | Oncology outpatient (recurring) (ONCR) | payer BC, MEDICAID, SELFPAY ==
--- NOTE | 2025-05-17 14:11 | ONCRAD TMN_ITS ---
Radiation Oncology Weekly Treatment Management Patient: Migue Gil> MR#: [id number] : 1965> Attending Physician: Brice Bustamante Date of Service: 05/17/2025 Referring Physician(s) : Diagnosis: C34.12 - Malignant neoplasm of upper lobe, left bronchus or lung, Diagnosed 04/01/2025 (Active) C77.1 - Secondary and unspecified malignant neoplasm of intrathoracic lymph nodes, Diagnosed 02/25/2025 (Active) Radiotherapy to date: Course: Lt Lung 2024, Treatment Site: SILVER+Mediastinum+RLung, Ref. ID: [id number], Energy: 6X, Dose/Fx (cGy): 200, #Fx: 8 35, Dose Correction (cGy): 0, Total Dose Delivered (cGy): 1,600, Start Date: 05/05/2025, Elapsed Days: 12 Reason for visit: The patient is being seen today as part of their regularly scheduled weekly on treatment visits to assess for acute toxicities from radiotherapy. Review of Systems: Patient having some mild esophagitis. We will order her MMW. No increase in shortness of breath. Vital Signs: Performed on 05/17/2025 1:25 PM BMI - 23.302 kg/m2 (high), Height - 62 in, Weight - 127.4 lbs, Temperature - 96.8 f, Pulse - 90 /min, Respiration - 18 /min, O2 Sat - 99 %, Pain - 0, Fatigue - 0 and BP - 130/ 82 mm(hg). Physical Exam: AAOx3. Skin intact Imaging: Radiation therapy imaging related to accurate target localization (i.e. KV, MV and CBCT) was reviewed. Appropriate changes, if any, were made to ensure treatment accuracy. Plan: Continue XRT MM W Rx to local [facility] pharmacy. Signed by: Brice Bustamante 05/17/2025 2:08:38 PM
[2025-05-19 08:27] LABS: Hematocrit 37.8 % (36-47); Hemoglobin 12.90 g/dL (11.27-16.99); Mean Corpuscular HGB Conc 34.1 g/dL (30-55); Mean Corpuscular Hemoglobin 32.5 pg (27-33); Mean Corpuscular Volume 95.2 fl (85-98); Nucleated Red Blood Cells % 0 %; Platelet Count 214 10^3/cmm (157-399); Red Blood Count 3.97 10^6/uL (3.85-5.65); White Blood Count 5.09 10^3/uL (3.29-11.43)
[2025-05-19 08:48] LABS: Alanine Aminotransferase 15 U/L (0-33); Albumin Level 4.1 g/dL (3.5-5.2); Alkaline Phosphatase 85 U/L (35-105); Anion Gap 15.2 (5-19); Aspartate Amino Transferase 19 U/L (0-32); Blood Urea Nitrogen 11 mg/dL (8-23); Calcium 9.2 mg/dL (8.5-10.5); Carbon Dioxide 23 mmol/L (22-29); Chloride 104 mmol/L (98-107); Creatinine Clr Calc Pharmacy 72.1356; Globulin 3.0 g/dL (1.3-4.6); Glucose 89 mg/dL (65-115); Osmolality Calculated 285 mOsm/kg (285-295); Potassium 4.2 mmol/L (3.5-5.1); Sodium 138 mmol/L (136-145); Total Protein 7.1 g/dL (6.6-8.7)
[2025-05-19] MEDS: diphenhydrAMINE 50 mg/mL SDV 1mL 25 MG IVP (10:37)
[2025-05-19] MEDS: PACLitaxeL 80 MG in sodium chloride 0.9%(non-DEHP) 250 ML 263.33 MG IV (11:09)
[2025-05-19] MEDS: CARBOplatin 210 MG in sodium chloride 0.9% 500 ML 521 MG IV (12:00)
[2025-05-19 13:17] VITALS: BP 143/88; PULSE 72; RESP 16; TEMP 36.6; O2SAT 98
--- NOTE | 2025-05-24 14:24 | ONCRAD TMN_ITS ---
Radiation Oncology Weekly Treatment Management Patient: Louise Camarena MR#: [id number] : 1965 Attending Physician: Dr. Cornelius Norris Date of Service: 05/24/2025 Referring Physician(s) : Diagnosis: C34.12 - Malignant neoplasm of upper lobe, left bronchus or lung, Diagnosed 04/01/2025 (Active) C77.1 - Secondary and unspecified malignant neoplasm of intrathoracic lymph nodes, Diagnosed 02/25/2025 (Active) Radiotherapy to date: Course: Lt Lung 2024, Treatment Site: SILVER+Mediastinum+RLung, Ref. ID: [id number], Energy: 6X, Dose/Fx (cGy): 200, #Fx: , Dose Correction (cGy): 0, Total Dose Delivered (cGy): 2,600, Start Date: 05/05/2025, End Date: 05/24/2025, Elapsed Days: 19 Reason for visit: The patient is being seen today as part of their regularly scheduled weekly on treatment visits to assess for acute toxicities from radiotherapy. Review of Systems: Intermittent low chest rib pain. Some swallowing pain that does not respond to triple mix ( magic mouthwash) . Active at home. Still smoking from time to time Lives with room mate who is not around. Active wither ADLs. Vital Signs: Performed on 05/24/2025 1:55 PM BMI - 23.302 kg/m2 (high), Height - 62 in, Weight - 127.4 lbs, Temperature - 97.2 f, Pulse - 97 /min, Respiration - 17 /min, O2 Sat - 98 %, Pain - 0, Fatigue - 0 and BP - 144/ 92 mm(hg)(high). Physical Exam: omitted Imaging: Radiation therapy imaging related to accurate target localization (i.e. KV, MV and CBCT) was reviewed. Appropriate changes, if any, were made to ensure treatment accuracy. Plan: Good tolerance of treatment. Add antacids. Begged her to finally quit smoking. Signed by: Dr. Cornelius Norris 05/24/2025 2:22:51 PM
[2025-05-26 09:17] LABS: Hematocrit 35.5 % (36-47); Hemoglobin 12.20 g/dL (11.27-16.99); Mean Corpuscular HGB Conc 34.4 g/dL (30-55); Mean Corpuscular Hemoglobin 32.6 pg (27-33); Mean Corpuscular Volume 94.9 fl (85-98); Nucleated Red Blood Cells % 0 %; Platelet Count 203 10^3/cmm (157-399); Red Blood Count 3.74 10^6/uL (3.85-5.65); White Blood Count 4.03 10^3/uL (3.29-11.43)
[2025-05-26 09:49] LABS: Alanine Aminotransferase 16 U/L (0-33); Albumin Level 4.0 g/dL (3.5-5.2); Alkaline Phosphatase 77 U/L (35-105); Anion Gap 13.1 (5-19); Aspartate Amino Transferase 18 U/L (0-32); Blood Urea Nitrogen 16 mg/dL (8-23); Calcium 9.1 mg/dL (8.5-10.5); Carbon Dioxide 25 mmol/L (22-29); Chloride 104 mmol/L (98-107); Creatinine Clr Calc Pharmacy 83.6765; Globulin 3.0 g/dL (1.3-4.6); Glucose 86 mg/dL (65-115); Osmolality Calculated 286 mOsm/kg (285-295); Potassium 4.1 mmol/L (3.5-5.1); Sodium 138 mmol/L (136-145); Total Protein 7.0 g/dL (6.6-8.7)
[2025-05-26] MEDS: diphenhydrAMINE 50 mg/mL SDV 1mL 25 MG IVP (11:25)
[2025-05-26] MEDS: PACLitaxeL 80 MG in sodium chloride 0.9%(non-DEHP) 250 ML 263.33 MG IV (12:33)
[2025-05-26] MEDS: CARBOplatin 230 MG in sodium chloride 0.9% 500 ML 523 MG IV (13:50)
[2025-05-26 15:40] VITALS: BP 136/98; PULSE 81; RESP 16; TEMP 36.1; O2SAT 100
--- NOTE | 2025-05-31 13:45 | ONCRAD TMN_ITS ---
Radiation Oncology Weekly Treatment Management Patient: Louise Camarena MR#: [id number] : 1965 Attending Physician: Brice Bustamante Date of Service: 05/31/2025 Referring Physician(s) : Diagnosis: C34.12 - Malignant neoplasm of upper lobe, left bronchus or lung, Diagnosed 04/01/2025 (Active) C77.1 - Secondary and unspecified malignant neoplasm of intrathoracic lymph nodes, Diagnosed 02/25/2025 (Active) Radiotherapy to date: Course: Lt Lung 2024, Treatment Site: SILVER+Mediastinum+RLung, Ref. ID: PTVb, Energy: 6X, Dose/Fx (cGy): 200, #Fx: 18 / 35, Dose Correction (cGy): 0, Total Dose Delivered (cGy): 3,600, Start Date: 05/05/2025, Elapsed Days: 26 Reason for visit: The patient is being seen today as part of their regularly scheduled weekly on treatment visits to assess for acute toxicities from radiotherapy. Review of Systems: Patient states MMW is helping much more at this time. She denies any hemoptysis or new onset of shortness of breath. She remains active at home and is still smoking. Vital Signs: Performed on 05/31/2025 1:18 PM BMI - 23.046 kg/m2 (high), Height - 62 in, Weight - 126 lbs, Temperature - 96.6 f, Pulse - 93 /min, Respiration - 17 /min, O2 Sat - 99 %, Pain - 0, Fatigue - 0 and BP - 130/ 87 mm(hg). Physical Exam: AAO x3. Skin intact Imaging: Radiation therapy imaging related to accurate target localization (i.e. KV, MV and CBCT) was reviewed. Appropriate changes, if any, were made to ensure treatment accuracy. Plan: Continue XRT Chemotherapy with labs will be done on of this week. Signed by: Brice Bustamante 05/31/2025 1:43:56 PM
[2025-06-02] MEDS: alteplase 1 mg/mL SDV 2 mL 2 MG INTRACATH (09:25)
[2025-06-02 10:08] LABS: Hematocrit 36.9 % (36-47); Hemoglobin 12.50 g/dL (11.27-16.99); Mean Corpuscular HGB Conc 33.9 g/dL (30-55); Mean Corpuscular Hemoglobin 32.6 pg (27-33); Mean Corpuscular Volume 96.3 fl (85-98); Nucleated Red Blood Cells % 0 %; Platelet Count 129 10^3/cmm (157-399); Red Blood Count 3.83 10^6/uL (3.85-5.65); White Blood Count 3.77 10^3/uL (3.29-11.43)
[2025-06-02 10:31] LABS: Alanine Aminotransferase 17 U/L (0-33); Albumin Level 4.2 g/dL (3.5-5.2); Alkaline Phosphatase 84 U/L (35-105); Anion Gap 15.2 (5-19); Aspartate Amino Transferase 23 U/L (0-32); Blood Urea Nitrogen 16 mg/dL (8-23); Calcium 9.3 mg/dL (8.5-10.5); Carbon Dioxide 25 mmol/L (22-29); Chloride 103 mmol/L (98-107); Creatinine Clr Calc Pharmacy 71.8911; Globulin 3.0 g/dL (1.3-4.6); Glucose 71 mg/dL (65-115); Osmolality Calculated 288 mOsm/kg (285-295); Potassium 4.2 mmol/L (3.5-5.1); Sodium 139 mmol/L (136-145); Total Protein 7.2 g/dL (6.6-8.7)
[2025-06-02] MEDS: diphenhydrAMINE 50 mg/mL SDV 1mL 25 MG IVP (11:16)
[2025-06-02] MEDS: PACLitaxeL 80 MG in sodium chloride 0.9%(non-DEHP) 250 ML 263.33 MG IV (12:36)
[2025-06-02] MEDS: CARBOplatin 210 MG in sodium chloride 0.9% 500 ML 521 MG IV (13:47)
== END 2025-06-06 23:59 | disposition home or self-care (01) ==
PROVIDERS: Nurse Practitioner; Nurse Practitioner Family; Visit Provider Radiology Radiation Oncology
DX: Z51.0 Encounter for antineoplastic radiation therapy (principal); C34.12 Malignant neoplasm of upper lobe, left bronchus or lung; C77.1 Secondary and unspecified malignant neoplasm of intrathoracic lymph nodes
CPT/HCPCS: 36415; 36593; 77336; 77386; 80053; 85025; 96367; 96375; 96413; 96417; J1100; J1200; J2469; J2997; J3490; J7040; J7050; J9045; J9267; J9999

== ENCOUNTER 2025-06-14 13:04 | Oncology outpatient (recurring) (ONCR) | payer BC, MEDICAID, SELFPAY ==
--- NOTE | 2025-06-07 13:48 | ONCRAD TMN_ITS ---
Radiation Oncology Weekly Treatment Management Patient: Migue Gil> MR#: [id number] : 1965> Attending Physician: Brice Bustamante Date of Service: 06/07/2025 Referring Physician(s) : Dr. James Diagnosis: C34.12 - Malignant neoplasm of upper lobe, left bronchus or lung, Diagnosed 04/01/2025 (Active) C77.1 - Secondary and unspecified malignant neoplasm of intrathoracic lymph nodes, Diagnosed 02/25/2025 (Active) Radiotherapy to date: Course: Lt Lung 2024 Treatment Site: SILVER+Mediastinum+RLungRef. ID: [id number], Energy: 6X, Dose/Fx (cGy): 200, #Fx: 35, Dose Correction (cGy): 0, Total Dose Delivered (cGy): 4,600, Start Date: 05/05/2025, Elapsed Days: 33 Reason for visit: The patient is being seen today as part of their regularly scheduled weekly on treatment visits to assess for acute toxicities from radiotherapy. Review of Systems: Patient had some mild shortness of breath this morning that responded to an inhaler. Patient scheduled for chemotherapy this . Patient denies any hemoptysis, significant weight loss. Vital Signs: Performed on 06/07/2025 12:45 PM BMI - 23.046 kg/m2 (high), Height - 62 in, Weight - 126 lbs, Temperature - 97.2 f, Pulse - 106 /min (high), Respiration - 17 /min, O2 Sat - 99 %, Pain - 0, Fatigue - 0 and BP - 126/ 84 mm(hg). Physical Exam: AAOx3. Skin intact. Lungs clear to auscultation Imaging: Radiation therapy imaging related to accurate target localization (i.e. KV, MV and CBCT) was reviewed. Appropriate changes, if any, were made to ensure treatment accuracy. Plan: Continue XRT. Obtain new labs this week his platelets have decreased to 129,000 Probable chemotherapy on June 09. Signed by: Brice Bustamante 06/07/2025 1:47:34 PM
[2025-06-09 08:32] LABS: Hematocrit 32.7 % (36-47); Hemoglobin 11.50 g/dL (11.27-16.99); Mean Corpuscular HGB Conc 35.2 g/dL (30-55); Mean Corpuscular Hemoglobin 33.4 pg (27-33); Mean Corpuscular Volume 95.1 fl (85-98); Nucleated Red Blood Cells % 0 %; Platelet Count 77 10^3/cmm (157-399); Red Blood Count 3.44 10^6/uL (3.85-5.65); White Blood Count 1.99 10^3/uL (3.29-11.43)
[2025-06-09 08:57] LABS: Alanine Aminotransferase 21 U/L (0-33); Albumin Level 4.0 g/dL (3.5-5.2); Alkaline Phosphatase 83 U/L (35-105); Anion Gap 13.8 (5-19); Aspartate Amino Transferase 24 U/L (0-32); Blood Urea Nitrogen 16 mg/dL (8-23); Calcium 9.0 mg/dL (8.5-10.5); Carbon Dioxide 24 mmol/L (22-29); Chloride 104 mmol/L (98-107); Creatinine Clr Calc Pharmacy 71.6461; Globulin 2.9 g/dL (1.3-4.6); Glucose 77 mg/dL (65-115); Osmolality Calculated 286 mOsm/kg (285-295); Potassium 3.8 mmol/L (3.5-5.1); Sodium 138 mmol/L (136-145); Total Protein 6.9 g/dL (6.6-8.7)
--- NOTE | 2025-06-14 14:15 | ONCRAD TMN_ITS ---
Radiation Oncology Weekly Treatment Management Patient: Louise Camarena MR#: [id number] : 1965 Attending Physician: Dr. Kathy Douglas Date of Service: 06/14/2025 Referring Physician(s) : Dev James Diagnosis: C34.12 - Malignant neoplasm of upper lobe, left bronchus or lung, Diagnosed 04/01/2025 (Active) C77.1 - Secondary and unspecified malignant neoplasm of intrathoracic lymph nodes, Diagnosed 02/25/2025 (Active) Radiotherapy to date: Course: Lt Lung 2024 Treatment Site: SILVER+Mediastinum+RLung, Ref. ID: PTVb, Energy: 6X, Dose/Fx (cGy): 200, #Fx: 28 / 35, Dose Correction (cGy): 0, Total Dose Delivered (cGy): 5,600, Start Date: 05/05/2025, End Date: 06/14/2025, Elapsed Days: 40 Reason for visit: The patient is being seen today as part of their regularly scheduled weekly on treatment visits to assess for acute toxicities from radiotherapy. Review of Systems: Patient is fatigued today. Her respiratory status and swallowing has remained stable. Vital Signs: Performed on 06/14/2025 1:56 PM BMI - 23.302 kg/m2 (high), Height - 62 in, Weight - 127.4 lbs, Temperature - 97.6 f, Pulse - 99 /min, Respiration - 17 /min, O2 Sat - 97 %, Pain - 0, Fatigue - 0 and BP - 159/ 96 mm(hg)(high). Physical Exam: No changes on exam Imaging: Radiation therapy imaging related to accurate target localization (i.e. KV, MV and CBCT) was reviewed. Appropriate changes, if any, were made to ensure treatment accuracy. Plan: Her chemotherapy was held last week due to her counts. She will be having her counts repeated . Will otherwise continue with her treatments as planned Signed by: Dr. Kathy Douglas 06/14/2025 2:15:08 PM
== END 2025-06-14 23:59 | disposition home or self-care (01) ==
PROVIDERS: Nurse Practitioner; Visit Provider Radiology Radiation Oncology
DX: Z51.0 Encounter for antineoplastic radiation therapy (principal); C34.12 Malignant neoplasm of upper lobe, left bronchus or lung; C77.1 Secondary and unspecified malignant neoplasm of intrathoracic lymph nodes
CPT/HCPCS: 77336; 77386; 80053; 85025

== ENCOUNTER 2025-07-13 10:00 | Oncology outpatient (recurring) (ONCR) | payer BC, MEDICAID, SELFPAY ==
[2025-06-16 07:33] LABS: Hematocrit 32.9 % (36-47); Hemoglobin 11.30 g/dL (11.27-16.99); Mean Corpuscular HGB Conc 34.3 g/dL (30-55); Mean Corpuscular Hemoglobin 33.1 pg (27-33); Mean Corpuscular Volume 96.5 fl (85-98); Nucleated Red Blood Cells % 0 %; Platelet Count 126 10^3/cmm (157-399); Red Blood Count 3.41 10^6/uL (3.85-5.65); White Blood Count 1.72 10^3/uL (3.29-11.43)
[2025-06-16 07:50] LABS: Alanine Aminotransferase 17 U/L (0-33); Albumin Level 4.0 g/dL (3.5-5.2); Alkaline Phosphatase 89 U/L (35-105); Anion Gap 16.7 (5-19); Aspartate Amino Transferase 21 U/L (0-32); Blood Urea Nitrogen 20 mg/dL (8-23); Calcium 9.1 mg/dL (8.5-10.5); Carbon Dioxide 23 mmol/L (22-29); Chloride 101 mmol/L (98-107); Globulin 3.1 g/dL (1.3-4.6); Glucose 98 mg/dL (65-115); Osmolality Calculated 287 mOsm/kg (285-295); Potassium 3.7 mmol/L (3.5-5.1); Sodium 137 mmol/L (136-145); Total Protein 7.1 g/dL (6.6-8.7)
[2025-06-16 08:21] LABS: Slide Review Slide Review Perform
[2025-06-20 09:00] LABS: Hematocrit 32.3 % (36-47); Hemoglobin 11.10 g/dL (11.27-16.99); Mean Corpuscular HGB Conc 34.4 g/dL (30-55); Mean Corpuscular Hemoglobin 33.4 pg (27-33); Mean Corpuscular Volume 97.3 fl (85-98); Platelet Count 213 10^3/cmm (157-399); Red Blood Count 3.32 10^6/uL (3.85-5.65); White Blood Count 3.63 10^3/uL (3.29-11.43)
[2025-06-20 09:25] LABS: Alanine Aminotransferase 15 U/L (0-33); Albumin Level 4.0 g/dL (3.5-5.2); Alkaline Phosphatase 95 U/L (35-105); Anion Gap 16.7 (5-19); Aspartate Amino Transferase 21 U/L (0-32); Blood Urea Nitrogen 13 mg/dL (8-23); Calcium 9.1 mg/dL (8.5-10.5); Carbon Dioxide 24 mmol/L (22-29); Chloride 103 mmol/L (98-107); Creatinine Clr Calc Pharmacy 71.4777; Globulin 3.0 g/dL (1.3-4.6); Glucose 82 mg/dL (65-115); Osmolality Calculated 289 mOsm/kg (285-295); Potassium 3.7 mmol/L (3.5-5.1); Sodium 140 mmol/L (136-145); Total Protein 7.0 g/dL (6.6-8.7)
[2025-06-20 09:33] LABS: Absolute Segmented Neutrophil 1.3 10/cmm (1.6-7.1); Atypical Lymphs 12.0 % (0-5); Band Neutrophils Absolute 0.1 10^3/cmm (0.0-1.2); Slide Review Slide Review Perform; Total Cells Counted 100 (0-100)
[2025-06-20] MEDS: diphenhydrAMINE 50 mg/mL SDV 1mL 25 MG IVP (11:13)
[2025-06-20] MEDS: PACLitaxeL 80 MG in sodium chloride 0.9%(non-DEHP) 250 ML 263.33 MG IV (12:08)
[2025-06-20] MEDS: CARBOplatin 210 MG in sodium chloride 0.9% 500 ML 521 MG IV (13:31)
[2025-06-20 15:21] VITALS: BP 126/79; PULSE 85; TEMP 35.9; O2SAT 98
--- NOTE | 2025-07-11 10:30 | CT_ITS ---
WS: [id number] CT CHEST, ABDOMEN, AND PELVIS TECHNIQUE: Contrast-enhanced CT of the chest, abdomen, and pelvis with coronal and sagittal reformatted images. CLINICAL INFORMATION: Restaging COMPARISON: CT 02/15/2025 and 02/11/2023 DLP: 541.[address] scans at [facility] use at least one of these dose optimization techniques: automated exposure control; mA and/or kV adjustment per patient size (includes targeted exams where dose is matched to clinical indication); or iterative reconstruction. CT CHEST: Interval treatment of the previously described LEFT upper lobe nodule with a small residual opacity in this location measuring 7.8 mm. No evidence of new or progressive disease. Findings compatible with interval response to therapy. Previously described 4 mm LEFT upper lobe nodule has decreased in size with a faint semisolid appearance today measuring 2 to 3 mm Aortic calcification. Normal caliber thoracic aorta. Coronary calcification. Bilateral breast implants. No mediastinal or hilar lymphadenopathy. No axillary lymphadenopathy. Mild thoracic kyphosis. CT ABDOMEN AND PELVIS: Fatty liver. Normal portal vein and splenic vein. Normal spleen. Small esophageal hiatal hernia. Normal gallbladder. Normal pancreatic parenchymal enhancement. Adrenal glands are normal. Normal renal parenchymal enhancement. No hydronephrosis. Aortic calcification. Normal caliber abdominal aorta. Sigmoid diverticulosis. No adenopathy in the abdomen or pelvis. No evidence of metastatic disease in the abdomen or pelvis. CT/CT chest abdpel w/*[id number] IMPRESSION: 1. Interval decrease in size of the previously described FDG avid LEFT upper l obe neoplasm. Small residual opacity in this location today measuring 7.8 mm co mpatible with interval response to therapy. 2. Previously described 4 mm nodule in the LEFT upper lobe is decreased in siz e with a semisolid appearance today measuring 2 to 3 mm. 3. No lymphadenopathy in the chest abdomen or pelvis. 4. No evidence of metastatic disease in the abdomen or pelvis.
[2025-07-11] MEDS: iohexol 350 mg/mL 500 mL Btl (per mL) PO (10:41)
[2025-07-11] MEDS: iohexol 350 mg/mL 500 mL Btl (per mL) IV (10:52)
[2025-07-13 10:06] LABS: Hematocrit 37.7 % (36-47); Hemoglobin 12.70 g/dL (11.27-16.99); Mean Corpuscular HGB Conc 33.7 g/dL (30-55); Mean Corpuscular Hemoglobin 33.9 pg (27-33); Mean Corpuscular Volume 100.5 fl (85-98); Nucleated Red Blood Cells % 0 %; Platelet Count 214 10^3/cmm (157-399); Red Blood Count 3.75 10^6/uL (3.85-5.65); White Blood Count 5.48 10^3/uL (3.29-11.43)
[2025-07-13 10:27] LABS: Alanine Aminotransferase 16 U/L (0-33); Albumin Level 4.2 g/dL (3.5-5.2); Alkaline Phosphatase 99 U/L (35-105); Anion Gap 16.9 (5-19); Aspartate Amino Transferase 20 U/L (0-32); Blood Urea Nitrogen 12 mg/dL (8-23); Calcium 9.3 mg/dL (8.5-10.5); Carbon Dioxide 23 mmol/L (22-29); Chloride 101 mmol/L (98-107); Creatinine Clr Calc Pharmacy 70.7505; Globulin 3.1 g/dL (1.3-4.6); Glucose 93 mg/dL (65-115); Osmolality Calculated 283 mOsm/kg (285-295); Potassium 3.9 mmol/L (3.5-5.1); Sodium 137 mmol/L (136-145); Total Protein 7.3 g/dL (6.6-8.7)
--- NOTE | 2025-07-13 10:45 | ONCRAD EPV_ITS ---
Radiation Oncology Established Patient Visit Patient: Loiuse Camarena [id number] : 1965 Age: 60 Sex: Female Dictated by: Dr. Kathy Douglas Date of Service: 07/13/2025 Referring Physician(s) : Dev James Diagnosis: C34.12 - Malignant neoplasm of upper lobe, left bronchus or lung, Diagnosed 04/01/2025 (Active) C77.1 - Secondary and unspecified malignant neoplasm of intrathoracic lymph nodes, Diagnosed 02/25/2025 (Active) Radiotherapy to Date: Course: Lt Lung 2024, Treatment Site: SILVER+Mediastinum+RLung, Ref. ID: [id number], Energy: 6X, Dose/Fx (cGy): 200, #Fx: 30 / 30, Dose Correction (cGy): 0, Total Dose Delivered (cGy): 6,000, Start Date: 05/05/2025, End Date: 06/16/2025, Elapsed Days: 42 Current History: Patient returns today after having completed her treatment for lung cancer June 16, 2025. Her swallowing is improved. Her respiratory status is better. Overall she feels substantially better. Her CT scan which was just done recently did show interval decrease in size of the left upper lobe mass as well as a decrease in size of a 4 mm left upper lobe semisolid nodule. Current Medications: albuterol sulfate 90 mcg/actuation (Ventolin HFA) inhalation escitalopram oxalate 5 mg PO DAILY mupirocin 2% (Centany) 1 applic topical TID 7 days ondansetron 4 mg PO Q8H PRN 2 weeks Allergies: sulfamethoxazole (From Bactrim) Allergy ADR-Chest Pain trimethoprim (From Bactrim) Allergy ADR-Chest Pain Current Complaints / Review of Systems: . Vital Signs: Performed on 07/13/2025 10:27 AM BMI - 5.194 kg/m2 (low), Height - 62 in, Weight - 28.4 lbs, Temperature - 97.4 f, Pulse - 94 /min, Respiration - 17 /min, O2 Sat - 98 %, Pain - 0, Fatigue - 0 and BP - 182/ 105 mm(hg)(high). Physical Exam: General: Alert and oriented x 3. No acute distress. HEENT: Normocephalic, atraumatic. Extraocular Movements Intact: Pupils Equal, Round, Reactive to Light and Accommodation LUNGS: Respiratory rate is regular nonlabored. Performance Status: 100 Lab: None pending. Pathology: Primary, c34.12 - malignant neoplasm of upper lobe, left bronchus or lung, Diagnosed 04/01/2025 (active) and Primary, c77.1 - secondary and unspecified malignant neoplasm of intrathoracic lymph nodes, Diagnosed 02/25/2025 (active) . Imaging: See HPI Impression: Malignant neoplasm of the left upper lobe, mediastinum and right lung Plan: At this point she is recovering nicely from her treatments. She will be due for her PET scan and 8 weeks. She did have a preliminary CT scan which showed things were decreasing in size. I gave her this report. At this point she will meet with medical oncology later today. Signed by: 07/13/2025 10:43:20 AM <<Signature on File>> Time spent with patient: 20 CPT Code: CPT Code:
== END 2025-07-15 23:59 | disposition home or self-care (01) ==
PROVIDERS: Internal Medicine; Nurse Practitioner; Visit Provider Radiology Radiation Oncology
DX: Z53.9 Procedure and treatment not carried out, unspecified reason; C34.12 Malignant neoplasm of upper lobe, left bronchus or lung
CPT/HCPCS: 36591; 71260; 74177; 77336; 77386; 80053; 83615; 85007; 85025; 96367; 96372; 96375; 96413; 96415; 96523; J1100; J1200; J2469; J3490; J7040; J7050; J9045; J9267; J9999; Q5101

== ENCOUNTER 2025-07-20 09:13 | Oncology outpatient (recurring) (ONCR) | payer BC, MEDICAID, SELFPAY ==
[2025-07-20 10:12] LABS: Thyroid Stimulating Hormone 1.31 uIU/mL (0.27-4.20)
[2025-07-20 10:33] LABS: Hepatitis B Surface Antigen Non-Reactive (Nonreactive)
[2025-07-20] MEDS: durvalumab 1,500 MG in sodium chloride 0.9% 250 ML 280 MG IV (12:04)
[2025-07-20 13:22] VITALS: BP 122/81; PULSE 88; RESP 16; TEMP 36.6; O2SAT 96
== END 2025-07-20 23:59 | disposition home or self-care (01) ==
PROVIDERS: Visit Provider Nurse Practitioner Family
DX: Z51.12 Encounter for antineoplastic immunotherapy (principal); C34.12 Malignant neoplasm of upper lobe, left bronchus or lung; Z79.899 Other long term (current) drug therapy
CPT/HCPCS: 84443; 86705; 86706; 87340; 96413; A4222; J7050; J9173

== ENCOUNTER 2025-08-03 09:10 | Oncology outpatient (recurring) (ONCR) | payer BC, MEDICAID, SELFPAY ==
[2025-08-03 09:24] LABS: Hematocrit 38.4 % (36-47); Hemoglobin 13.00 g/dL (11.27-16.99); Mean Corpuscular HGB Conc 33.9 g/dL (30-55); Mean Corpuscular Hemoglobin 34.7 pg (27-33); Mean Corpuscular Volume 102.4 fl (85-98); Nucleated Red Blood Cells % 0 %; Platelet Count 236 10^3/cmm (157-399); Red Blood Count 3.75 10^6/uL (3.85-5.65); White Blood Count 5.60 10^3/uL (3.29-11.43)
[2025-08-03 09:48] LABS: Alanine Aminotransferase 19 U/L (0-33); Albumin Level 4.4 g/dL (3.5-5.2); Alkaline Phosphatase 90 U/L (35-105); Anion Gap 16.2 (5-19); Aspartate Amino Transferase 25 U/L (0-32); Blood Urea Nitrogen 14 mg/dL (8-23); Calcium 9.2 mg/dL (8.5-10.5); Carbon Dioxide 23 mmol/L (22-29); Chloride 105 mmol/L (98-107); Globulin 3.4 g/dL (1.3-4.6); Glucose 82 mg/dL (65-115); Osmolality Calculated 290 mOsm/kg (285-295); Potassium 4.2 mmol/L (3.5-5.1); Sodium 140 mmol/L (136-145); Total Protein 7.8 g/dL (6.6-8.7)
== END 2025-08-14 23:59 | disposition home or self-care (01) ==
PROVIDERS: Visit Provider Nurse Practitioner Family
DX: C34.12 Malignant neoplasm of upper lobe, left bronchus or lung (principal)
CPT/HCPCS: 36591; 80053; 85025

== ENCOUNTER 2025-08-17 09:19 | Oncology outpatient (recurring) (ONCR) | payer BC, MEDICAID, SELFPAY ==
[2025-08-17 09:58] LABS: Hematocrit 38.3 % (36-47); Hemoglobin 13.20 g/dL (11.27-16.99); Mean Corpuscular HGB Conc 34.5 g/dL (30-55); Mean Corpuscular Hemoglobin 34.9 pg (27-33); Mean Corpuscular Volume 101.3 fl (85-98); Nucleated Red Blood Cells % 0 %; Platelet Count 196 10^3/cmm (157-399); Red Blood Count 3.78 10^6/uL (3.85-5.65); White Blood Count 5.49 10^3/uL (3.29-11.43)
[2025-08-17 10:35] LABS: Alanine Aminotransferase 15 U/L (0-33); Albumin Level 4.2 g/dL (3.5-5.2); Alkaline Phosphatase 88 U/L (35-105); Anion Gap 14.7 (5-19); Aspartate Amino Transferase 22 U/L (0-32); Blood Urea Nitrogen 15 mg/dL (8-23); Calcium 9.3 mg/dL (8.5-10.5); Carbon Dioxide 24 mmol/L (22-29); Chloride 104 mmol/L (98-107); Globulin 3.3 g/dL (1.3-4.6); Glucose 106 mg/dL (65-115); Osmolality Calculated 289 mOsm/kg (285-295); Potassium 3.7 mmol/L (3.5-5.1); Sodium 139 mmol/L (136-145); Thyroid Stimulating Hormone 1.01 uIU/mL (0.27-4.20); Total Protein 7.5 g/dL (6.6-8.7)
[2025-08-17 11:44] VITALS: BP 138/88; PULSE 73; RESP 16; TEMP 36.1; O2SAT 97
[2025-08-17] MEDS: durvalumab 1,500 MG in sodium chloride 0.9% 250 ML 280 MG IV (12:01)
[2025-08-17 13:14] VITALS: BP 143/97; PULSE 69; RESP 16; TEMP 36.2; O2SAT 96
== END 2025-08-17 23:59 | disposition home or self-care (01) ==
PROVIDERS: Visit Provider Nurse Practitioner Family
DX: Z51.12 Encounter for antineoplastic immunotherapy (principal); C34.12 Malignant neoplasm of upper lobe, left bronchus or lung; Z79.899 Other long term (current) drug therapy
CPT/HCPCS: 80053; 84443; 85025; 96413; A4222; J7050; J9173

== ENCOUNTER 2025-09-14 09:13 | Oncology outpatient (recurring) (ONCR) | payer BC, MEDICAID, SELFPAY ==
[2025-09-14 09:32] LABS: Hematocrit 41.3 % (36-47); Hemoglobin 14.10 g/dL (11.27-16.99); Mean Corpuscular HGB Conc 34.1 g/dL (30-55); Mean Corpuscular Hemoglobin 33.6 pg (27-33); Mean Corpuscular Volume 98.3 fl (85-98); Nucleated Red Blood Cells % 0 %; Platelet Count 222 10^3/cmm (157-399); Red Blood Count 4.20 10^6/uL (3.85-5.65); White Blood Count 5.65 10^3/uL (3.29-11.43)
[2025-09-14 09:58] LABS: Alanine Aminotransferase 12 U/L (0-33); Albumin Level 4.3 g/dL (3.5-5.2); Alkaline Phosphatase 101 U/L (35-105); Anion Gap 17.9 (5-19); Aspartate Amino Transferase 22 U/L (0-32); Blood Urea Nitrogen 15 mg/dL (8-23); Calcium 9.5 mg/dL (8.5-10.5); Carbon Dioxide 23 mmol/L (22-29); Chloride 102 mmol/L (98-107); Globulin 3.1 g/dL (1.3-4.6); Glucose 94 mg/dL (65-115); Osmolality Calculated 289 mOsm/kg (285-295); Potassium 3.9 mmol/L (3.5-5.1); Sodium 139 mmol/L (136-145); Thyroid Stimulating Hormone 0.13 uIU/mL (0.27-4.20); Total Protein 7.4 g/dL (6.6-8.7)
[2025-09-14] MEDS: durvalumab 1,500 MG in sodium chloride 0.9% 250 ML 280 MG IV (10:53)
[2025-09-14 12:06] VITALS: BP 135/83; PULSE 70
== END 2025-09-14 23:59 | disposition home or self-care (01) ==
PROVIDERS: Visit Provider Nurse Practitioner Family
DX: Z51.12 Encounter for antineoplastic immunotherapy (principal); C34.12 Malignant neoplasm of upper lobe, left bronchus or lung; Z79.899 Other long term (current) drug therapy
CPT/HCPCS: 80053; 84443; 85025; 96413; A4222; J7050; J9173